=== PATIENT | female | born 1990 | race African-American/Black ===

== ENCOUNTER 2017-07-22 14:29 | Outpatient (CLI) | payer OTHER ==
--- NOTE | 2017-07-22 21:11 | ULT ---
OB ULTRASOUND: Date: 07-22-17 History: follow up. Supervision of . FINDINGS: There is a single intrauterine gestation in cephalic presentation. Cardiac doppler demonstrates feta l heart tones with a heart rate of 140 bpm. The placenta is located posteriorly without evidence of placenta previa. Subjectively, there is a no rmal amount of amniotic fluid. The AMI is 18.7 cm which is at the upper limits of normal. The cervic al length is difficult to accurately measure on this examination. Where visualized it measures appro ximately 2.5 cm, but accuracy is decreased due to difficulty in visualization of the cervix. measurements: BPD 7.52 cm 30 weeks 1 day HC 27.71 cm 30 weeks 2 days AC 27.14 cm 31 weeks 2 days FL 5.96 cm 31 weeks Estimated gestational age by ultrasound is 30 weeks 4 days with and SISSY of 09-26-17. Gestational age by the last menstrual period is 31 weeks. The estimated weight by ultrasound is 1678 grams (3 lbs. 11 oz). This represents 37 percentile for weight. Visualized portions of the spine, cerebellum, four chambered heart, stomach, bilateral kidneys , urinary bladder, cord insertion and three vessel cord are visualized and have a normal appearance. No definite anomalies are seen on the provided images. IMPRESSION: 1. Single intrauterine gestation in cephalic presentation with heart tones documented. Gestati onal age by ultrasound is 30 weeks 4 days with an SISSY on 09-26-17. 2. Estimated weight is 1678 grams (3 lbs. 11 oz.). 3. Amniotic fluid index is 18.7 cm, upper limits of normal. 4. The obtained cervical length is 2.5 cm, but the cervix is not well evaluated for more accurate me asurement. POS: [facility]
== END 2017-07-22 14:30 | disposition home or self-care (01) ==
LOC: ULT 14:29
PROVIDERS: ATTEND Nurse Practitioner
DX: Z34.82 Encounter for supervision of other normal pregnancy, second trimester (principal); Z3A.30 30 weeks gestation of pregnancy
CPT/HCPCS: 76805

== ENCOUNTER 2017-08-26 11:09 | Outpatient (CLI) | payer OTHER ==
--- NOTE | 2017-08-26 14:08 | ULT ---
ULTRASOUND OB COMPLETE STANDARD: HISTORY: growth, MAGALIS, umbilical arteries. COMPARISON: Ultrasound OB complete 07/22/17. FINDINGS: Single viable intrauterine average ultrasound age 35 weeks 6 days and estimated date of del bret of 09/24/17. Estimated weight is 6 pounds 5 ounces, 56th percentile. Amniotic fluid ind ex of 20.3. Heart rate documented at 140 b.p.m. position is vertex. Placenta is posterior. Visualized bladder, left kidney, right kidney, stomach, 4-chamber heart, nose, lips, and 3-vessel cor d are normal. The cord insertion and the umbilical artery peak systolic velocity is 38.8 cm/s and diastolic v elocity is 12.5 cm/s. Systolic to diastolic ratio is 3.1. The mid core of the peak systolic velocit y is 53.7 cm/s. End-diastolic velocity is 18.8 cm/s for a systolic to diastolic ratio of 2.86. The placenta insertion peak systolic velocity is 64.9 cm/s, end-diastolic velocity is 19.4 cm/s for a sys tolic and diastolic ratio of 3.35. Biparietal diameter 36 weeks 3 days, 8.99 cm Head circumference 35 weeks 6 days, 31.87 cm Abdominal circumference 36 weeks 3 days, 32.47 cm Femur length 35 weeks 5 days, 6.97 cm IMPRESSION: 1. Single viable intrauterine with estimated date of delivery 09/24/17. This is concordan t with the clinical age. 2. Estimated weight is 6 pounds 5 ounces, 56th percentile. 3. Cord Doppler as above. 4. Cervix not interrogated on this examination. POS: [facility]
== END 2017-08-26 11:10 | disposition home or self-care (01) ==
LOC: ULT 11:09
PROVIDERS: ATTEND Nurse Practitioner
DX: O24.414 Gestational diabetes mellitus in pregnancy, insulin controlled (principal); Z3A.35 35 weeks gestation of pregnancy
CPT/HCPCS: 76805